=== PATIENT | female | born 1970 | race Caucasian/White ===

== ENCOUNTER 2021-11-13 10:12 | Emergency (ER) | payer OTHER, SELFPAY ==
--- NOTE | ~2021-11-13 | XR_ITS ---
EXAMINATION: XR chest 2V DATE: 11/13/2021 10:26 INDICATION: Foreign body ingestion. TECHNIQUE: Frontal and lateral views of the chest were obtained. COMPARISON: None. FINDINGS: The chest demonstrates clear lungs without pneumonia, pleural effusion, or pneumothorax. Th e heart size is normal. Breast implants are noted. There is a 2.8 cm ring-shaped foreign body in the esophagus at the level of the aortic arch. IMPRESSION: 1. 2.8 cm ring-shaped foreign body in the esophagus. Reviewed, dictated and finalized at location E. [facility]PARER
--- NOTE | 2021-11-13 10:17 | ED.GENADULT ---
HPI - General Adult General Chief complaint: Unspecified Stated complaint: SWALLOWED FB Source: patient Mode of arrival: ambulatory Limitations: no limitations History of Present Illness HPI narrative: 51-year-old female presented for complaint of foreign body lodged in esophagus. She states she swallowed a OURA ring last night at 11 PM. She has had sips of water and coffee at 0800 today, has not eaten since swallowing fb. Endorses pain with deep breaths, Denies shortness of breath, wheezing, nausea, vomiting. The device has a battery and is a tracker device to monitor vital signs. Related Data Home Medications Medication Instructions Recorded Confirmed buspirone 30 mg tablet 30 mg PO BID 09/13/19 calcium carbonate 600 mg-vitamin cap PO 09/13/19 D3 25 mcg (1,000 unit) capsule magnesium aspartate-potassium cap PO 09/13/19 aspartate 250 mg-250 mg capsule metformin 1,000 mg tablet 1,000 mg PO BID 09/13/19 methotrexate sodium 5 mg tablet 5 mg PO WEEKLY 09/13/19 progesterone micronized 200 mg 200 mg PO ONCE 09/13/19 capsule spironolactone 100 mg tablet 100 mg PO DAILY 09/13/19 testosterone 75 mg implant pellet 75 mg SUB-Q ONCE 09/13/19 thyroid (pork) 90 mg tablet 90 mg PO DAILY 09/13/19 vitamin B complex 1 tablet PO DAILY 09/13/19 Allergies Allergy/AdvReac Type Severity Reaction Status Date / Time codeine Allergy Unknown Unknown Verified 09/13/19 11:01 Review of Systems Review of Systems: CONSTITUTIONAL: Denies body aches, fever, chills, or sweats. EYES: Denies visual changes, redness, or discharge. ENT: Denies rhinorrhea, congestion CARDIOVASCULAR: Denies chest pain, palpitations RESPIRATORY: Denies cough or dyspnea. GASTROINTESTINAL: Endorses abdominal pain, nausea, vomiting, diarrhea. Denies hematochezia, hematemesis GENITOURINARY: Denies dysuria or hematuria. SKIN: Endorses skin change to chest after chemical treatment MUSCULOSKELETAL: Denies back pain, joint pain, or myalgia. NEUROLOGIC: Denies headache, numbness, tingling, or weakness. PSYCH: Denies depression or anxiety. All systems reviewed & are unremarkable except as noted in HPI and below PMFSH Surgical History Surgical History Delivery by section x4 Social History Social History Smoking status: Never smoker Second hand tobacco smoke exposure: No Alcohol intake: current Comments At time of signature, I have reviewed and agree with nursing past medical, surgical, social and family history unless otherwise noted. Please see nursing chart for further information. There is no relevant family history pertinent to the presenting complaint Exam Narrative: GENERAL: Well-appearing, well-nourished, and in no acute distress. HEAD: Normocephalic EYES: EOMI. No redness or drainage. Conjunctivae normal. ENT: Mucous membranes pink and moist. NECK: Normal AROM. Supple. CHEST: No respiratory distress. Clear to auscultation. HEART: Regular rate and rhythm. No murmur appreciated. ABDOMEN: Nontender abdomen, No guarding, rebound tenderness, asymmetry; abd soft, nondistended, normal active bowel sounds. MUSCULOSKELETAL: No bony tenderness. EXTREMITIES: Normal range of motion. No edema. SKIN: Warm, dry, no rash. Capillary refill normal. Normal skin turgor. NEURO: No focal deficits. Alert and oriented x3. Gait steady. PSYCH: Normal affect. No signs of depression or anxiety. Course Course Emergency Course: X-ray reviewed Spoke with GI on-call, Dr. Jordan, recommends patient go to the emergency room prior to endoscopy. Requests transfer to [facility] via private vehicle. Report called to [place] emergency room, report given to Radha JACOBSON. Risks of transportation reviewed with pt's will be driving pt; risks reviewed including injury, worsening of condition and . v/u. Patient is aware of diagno
[2021-11-13 10:28] VITALS: BP 134/76; PULSE 73; RESP 18; TEMP 36.3; O2SAT 100
== END 2021-11-13 10:59 | disposition short-term general hospital (02) ==
PROVIDERS: Emergency Provider Nurse Practitioner Family
DX: T18.198A Other foreign object in esophagus causing other injury, initial encounter (principal)
CPT/HCPCS: 71046; 99213; G0463

== ENCOUNTER 2021-11-13 11:12 | Day surgery (SDC) | payer OTHER, SELFPAY ==
[2021-11-13 11:14] VITALS: BP 126/82; PULSE 79; RESP 16; TEMP 36.4; O2SAT 100
--- NOTE | 2021-11-13 11:32 | ED.SKABFB ---
HPI - Skin/Abscess/Foreign Bdy General Chief complaint: Skin/Abscess/Foreign Body <Radha Pierre PA-C - Last Filed: 11/13/21 13:07> Stated complaint: foreign body in throat <Radha Pierre PA-C - Last Filed: 11/13/21 13:07> Time Seen by Provider: 11/13/21 11:29 <Radha Pierre PA-C - Last Filed: 11/13/21 13:07> Source: patient <Radha Pierre PA-C - Last Filed: 11/13/21 13:07> Mode of arrival: ambulatory <Radha Pierre PA-C - Last Filed: 11/13/21 13:07> Limitations: no limitations <Radha Pierre PA-C - Last Filed: 11/13/21 13:07> History of Present Illness HPI narrative: This is a 51-year-old female that presents to the emergency department from urgent care for GI foreign body. Reports last night at around 11 PM she was taking her medications. She had her pills in her hand. It was dark, she did not realize she also had her ring in her hand. She went to swallow all of her pills and felt that something was not right. She immediately realized that she probably swallowed her ring. She was evaluated at urgent care who contacted GI and sent her to the ED for further evaluation. She reports some pain in her esophagus. She has been able to swallow liquids still. Her last drink was about 4 hours ago. She has not tried to eat anything. Denies fever, vomiting, or shortness of breath. <Radha Pierre PA-C - Last Filed: 11/13/21 13:07> Related Data Home medications: Home Medications Medication Instructions Recorded Confirmed calcium carbonate 600 mg-vitamin 1 cap PO DAILY 09/13/19 11/13/21 D3 25 mcg (1,000 unit) capsule magnesium aspartate-potassium 1 cap PO DAILY 09/13/19 11/13/21 aspartate 250 mg-250 mg capsule spironolactone 100 mg tablet 100 mg PO DAILY 09/13/19 thyroid (pork) 90 mg tablet 90 mg PO DAILY 09/13/19 vitamin B complex 1 tablet PO DAILY 09/13/19 bupropion HCl [Wellbutrin XL] 300 mg PO QAM 11/13/21 11/13/21 <Radha Pierre PA-C - Last Filed: 11/13/21 13:07> Allergies/Adverse reactions: Allergies Allergy/AdvReac Type Severity Reaction Status Date / Time codeine Allergy Unknown Unknown Verified 11/13/21 13:14 <Radha Pierre PA-C - Last Filed: 11/13/21 13:07> Review of Systems Review of Systems: CONSTITUTIONAL: Denies fever CARDIOVASCULAR: Reports chest pain RESPIRATORY: Denies dyspnea. GASTROINTESTINAL: Denies vomiting <Radha Pierre PA-C - Last Filed: 11/13/21 13:07> All systems reviewed & are unremarkable except as noted in HPI and below <Radha Pierre PA-C - Last Filed: 11/13/21 13:07> PMFSH Past Medical History Medical History: Medical History History of anxiety History of hypothyroidism <Radha Pierre PA-C - Last Filed: 11/13/21 13:07> Surgical History Surgical History: Surgical History Delivery by section x4 <Radha Pierre PA-C - Last Filed: 11/13/21 13:07> Social History Social History: Social History Smoking status: Never smoker Second hand tobacco smoke exposure: No Alcohol intake: current <INDIRA Borjas Last Filed: 11/13/21 13:07> Exam Narrative: GENERAL: Well-appearing, well-nourished, and in no acute distress. HEAD: Normocephalic, atraumatic. EYES: EOMI. CHEST: Clear to auscultation. No respiratory distress. No wheezes rales or rhonchi HEART: Regular rate and rhythm. No murmur heard. Normal peripheral pulses. EXTREMITIES: Normal range of motion. No edema. SKIN: Warm, dry, no rash. NEURO: No focal deficits. Alert and oriented x3. PSYCH: Normal mood and affect <Radha Pierre PA-C - Last Filed: 11/13/21 13:07> Course R[facility]PENTER/PA Physician Supervision Patient is clinically stable I agree with the PA note as documented and the care plan <Pavan Lopes MD - Last Filed:
--- NOTE | 2021-11-13 12:00 | PC.NURSE ---
patient states that last drank 4oz of coffee around 0730. took pills and swallowed ring around 1100. no resp distress noted at this time. encouraged to call immediately if any changes with breathing or swallowing
--- NOTE | 2021-11-13 12:06 | PC.NURSE ---
report given to Leisa in GI lab. plan for patient to GI lab around [id number]. may stay with patient through process. patient and family aware
--- NOTE | 2021-11-13 12:08 | WPDGICN ---
Assessment and Plan Assessment and plan (1) Esophageal foreign body: Qualifiers: Encounter type: subsequent encounter Qualified Code(s): T18.108D - Unspecified foreign body in esophagus causing other injury, subsequent encounter Code(s): T18.108A - Unspecified foreign body in esophagus causing other injury, initial encounter Status: Acute Assessment and Plan: EGD with possible biopsy or dilatation or cautery. I explained her the method used to remove foreign bodies. I told her that in the case of a food bolus we can break up the food to facilitate passage or removal. With something like hers I told her that if it is imbedded in the esophagus it may not be feasible to remove it and she could possibly require surgery. I also told her that there is a significant risk of bleeding or perforation due to foreign body removal, in which case surgery could also be necessary. I gave her the opportunity to ask any other questions and she stated that she had non and wished to proceed GI Consult Note Consult date/time: 11/13/21 12:08 HPI: Papito Hurley is a 51 year old female who apparently swallowed a ring accidentally last evening when she was taking medication. This is he ring that is use to monitor her vital signs. She went to urgent care where she was found on x-ray to have a foreign body in the upper esophagus. Here, chest x-ray confirms a 2.5 cm diameter ring type structure just above the aortic arch imbedded in the esophagus. Review of Systems Review of Systems: All systems reviewed & are unremarkable except as noted in HPI and below PMFSH Past Medical History Medical History History of anxiety History of hypothyroidism Surgical History Surgical History Delivery by section x4 Social History Social History Smoking status: Never smoker Second hand tobacco smoke exposure: No Alcohol intake: current Meds Home Medications and Allergies Home Medications Medication Instructions Recorded Confirmed Type calcium carbonate 600 mg-vitamin 1 cap PO DAILY 09/13/19 11/13/21 History D3 25 mcg (1,000 unit) capsule magnesium aspartate-potassium 1 cap PO DAILY 09/13/19 11/13/21 History aspartate 250 mg-250 mg capsule spironolactone 100 mg tablet 100 mg PO DAILY 09/13/19 History thyroid (pork) 90 mg tablet 90 mg PO DAILY 09/13/19 History vitamin B complex 1 tablet PO DAILY 09/13/19 History bupropion HCl [Wellbutrin XL] 300 mg PO QAM 11/13/21 11/13/21 History Allergies Allergy/AdvReac Type Severity Reaction Status Date / Time codeine Allergy Unknown Unknown Verified 11/13/21 13:14 Vital Signs Vital Signs - 24 hr 11/13/21 11:14 Temperature 36.4 C L Pulse Rate 79 Respiratory Rate 16 Blood Pressure 126/82 Pulse Oximetry 100 Exam Const: General: healthy appearing, no acute distress and alert Nutritional Appearance: thin Orientation/consciousness: patient oriented x3 Resp: Auscultation: clear to auscultation bilaterally Cardio: Rhythm: regular rhythm GI: GI Palp: Yes Soft to palpation and No Tenderness to palpation present (GI) Neuro: General: patient oriented x3 Results Labs CBC & Chem 7: 11/13/21 12:06 11/13/21 12:06
[2021-11-13 12:13] LABS: Basophils Percent Auto 0.5 % (0.2-1.2); Eosinophils Absolute Auto 0.1 K/mm3 (0-0.3); Eosinophils Percent Auto 1.3 % (0-4.4); Hematocrit 42.2 % (37.0-47.0); Hemoglobin 14.5 g/dL (12.0-15.0); Immature Granulocyte Absolute 0.01 K/mm3 (0.00-0.031); Immature Granulocyte Percent A 0.2 % (0-0.5); Lymphocytes Absolute Auto 1.81 K/mm3 (0.9-3.2); Lymphocytes Percent Auto 28.9 % (18.3-44.2); Mean Corpuscular HGB Conc 34.4 g/dl (32-36); Mean Corpuscular Hemoglobin 33.8 pg (26-34); Mean Corpuscular Volume 98.4 fl (80-100); Mean Platelet Volume 9.8 fl (7.4-10.4); Monocytes Absolute Auto 0.4 K/mm3 (0.1-0.6); Monocytes Percent Auto 6.9 % (2.6-8.5); Neutrophils Absolute Auto 3.9 K/mm3 (1.3-6.7); Neutrophils Percent Auto 62.2 % (45.5-73.1); Platelet Count Result 243 k/mm3 (150-375); Red Blood Count 4.29 M/mm3 (4.2-5.4); Red Cell Distribution Width 12.4 % (11.5-14.5); White Blood Count 6.3 K/mm3 (4.5-10.0)
[2021-11-13 12:27] LABS: Alanine Aminotransferase 36 U/L (4-35); Albumin Level 4.8 g/dL (3.5-5.1); Alkaline Phosphatase 48 U/L (38-126); Anion Gap 6 mmol/L (8-16); Aspartate Amino Transferase 35 U/L (14-36); Bilirubin,Total 0.5 mg/dL (0.2-1.3); Blood Urea Nitrogen 18 mg/dL (7-17); Calcium 9.3 mg/dL (8.4-10.2); Carbon Dioxide 25 mmol/L (22-30); Chloride 104 mmol/L (98-107); Estimated CRCL calculation 54 ml/min; Estimated Glomerular Filt Rate > 60; Glucose 97 mg/dL (65-110); Potassium 3.7 mmol/L (3.4-5.0); Sodium 135 mmol/L (137-145)
[2021-11-13] MEDS: SODIUM CHLORIDE 0.9% IV 1,000 ML 125 ML IV CONT (12:34)
[2021-11-13 13:18] VITALS: BP 122/66; PULSE 67; RESP 18; TEMP 36.1; O2SAT 100
--- NOTE | 2021-11-13 13:24 | WPDANESEPPF ---
Anes - Initial Pre Proc Eval Procedure: Operation Date: 11/13/21 14:00 Proposed Procedures p Esophagogastroduodenoscopy - Heladio Jordan MD Date/Time: 11/13/21 13:24 Surgeon: Heladio Jordan MD Pre Op Diagnosis: foreign body in throat Patient Data Age: 51 Gender: F Height: 1.63 m Weight: 47 kg Last Vital Signs Temp 36.1 C L 11/13/21 13:18 Pulse 67 11/13/21 13:18 Resp 18 11/13/21 13:18 BP 122/66 11/13/21 13:18 Pulse Ox 100 11/13/21 13:18 Allergies Allergy/AdvReac Type Severity Reaction Status Date / Time codeine Allergy Unknown Unknown Verified 11/13/21 13:14 Home Medications Medication Instructions Recorded Confirmed Type calcium carbonate 600 mg-vitamin 1 cap PO DAILY 09/13/19 11/13/21 History D3 25 mcg (1,000 unit) capsule magnesium aspartate-potassium 1 cap PO DAILY 09/13/19 11/13/21 History aspartate 250 mg-250 mg capsule spironolactone 100 mg tablet 100 mg PO DAILY 09/13/19 History thyroid (pork) 90 mg tablet 90 mg PO DAILY 09/13/19 History vitamin B complex 1 tablet PO DAILY 09/13/19 History bupropion HCl [Wellbutrin XL] 300 mg PO QAM 11/13/21 11/13/21 History Laboratory Tests 11/13/21 11/13/21 12:06 12:06 WBC 6.3 K/mm3 K/mm3 (4.5-10.0) RBC 4.29 M/mm3 M/mm3 (4.2-5.4) Hgb 14.5 g/dL g/dL (12.0-15.0) Hct 42.2 % % (37.0-47.0) MCV 98.4 fl fl (80-100) MCH 33.8 pg pg (26-34) MCHC 34.4 g/dl g/dl (32-36) RDW 12.4 % % (11.5-14.5) Plt Count 243 k/mm3 k/mm3 (150-375) MPV 9.8 fl fl (7.4-10.4) Immature Gran % (Auto) 0.2 % % (0-0.5) Neut % (Auto) 62.2 % % (45.5-73.1) Lymph % (Auto) 28.9 % % (18.3-44.2) [place] % (Auto) 6.9 % % (2.6-8.5) Eos % (Auto) 1.3 % % (0-4.4) Baso % (Auto) 0.5 % % (0.2-1.2) Lymph # (Auto) 1.81 K/mm3 K/mm3 (0.9-3.2) [place] # (Auto) 0.4 K/mm3 K/mm3 (0.1-0.6) Eos # (Auto) 0.1 K/mm3 K/mm3 (0-0.3) Baso # (Auto) 0.0 K/mm3 K/mm3 (0.0-0.1) Abs Immat Gran (auto) 0.01 K/mm3 K/mm3 (0.00-0.031) Absolute Neuts (auto) 3.9 K/mm3 K/mm3 (1.3-6.7) Absolute Nucleated RBC 0.0 K/mm3 K/mm3 (0.0-0.012) Nucleated RBC % 0.0 % % (0.0-0.2) Sodium 135 mmol/L L mmol/L (137-145) Potassium 3.7 mmol/L mmol/L (3.4-5.0) Chloride 104 mmol/L mmol/L (98-107) Carbon Dioxide 25 mmol/L mmol/L (22-30) Anion Gap 6 mmol/L L mmol/L (8-16) BUN 18 mg/dL H mg/dL (7-17) Creatinine 0.80 mg/dL mg/dL (0.7-1.0) Estim Creat Clear Calc 54 ml/min ml/min Estimated GFR > 60 (59 - ) Glucose 97 mg/dL mg/dL (65-110) Calcium 9.3 mg/dL mg/dL (8.4-10.2) Total Bilirubin 0.5 mg/dL mg/dL (0.2-1.3) AST 35 U/L U/L (14-36) ALT 36 U/L H U/L (4-35) Alkaline Phosphatase 48 U/L U/L (38-126) Total Protein 7.0 g/dL g/dL (6.3-8.2) Albumin 4.8 g/dL g/dL (3.5-5.1) Patient hx anesthesia problems: none Family hx anesthesia problems: none Results Review: All pre-operative results and documents have been reviewed as part of the pre-operative evaluation. [facility] Past Medical History Medical History History of anxiety History of hypothyroidism Surgical History Surgical History Delivery by section x4 Social History Social History Smoking status: Never smoker Second hand tobacco smoke exposure: No Alcohol intake: current Anes - Eval Final PreProcedure Day of Procedure 11/13/21 13:24 Patient weight: thin Heart: regular rate and rhythm Lungs: clear to auscultation Airway: Mallampati scale class II Neurological: alert and oriented Last oral intake: >/= 8 hours ASA classification: II
[2021-11-13] MEDS: LACTATED RINGERS 1,000 ML 150 ML IV CONT (13:48)
[2021-11-13 14:25] VITALS: BP 100/64; PULSE 81; RESP 15; O2SAT 100
[2021-11-13 14:35] VITALS: BP 111/57; PULSE 80; RESP 23; O2SAT 99
[2021-11-13 14:45] VITALS: BP 124/67; PULSE 79; RESP 19; O2SAT 100
== END 2021-11-13 14:55 | disposition home or self-care (01) ==
LOC: ANHED 12:04 → ANHENDO 12:06
PROVIDERS: Physician Assistant; Emergency Provider Emergency Medicine; Visit Provider Internal Medicine Gastroenterology
PROC: 0DJ08ZZ Inspection of Upper Intestinal Tract, Via Natural or Artificial Opening Endoscopic (ICD-10-PCS; CPT 43235; principal; 2021-11-13 14:00)
DX: T18.198A Other foreign object in esophagus causing other injury, initial encounter (principal); F41.9 Anxiety disorder, unspecified
CPT/HCPCS: 43247; 36415; 71046; 80053; 85025; 99285; C1726; J0330; J2704; J7030; J7120